=== PATIENT | male | born 1995 | race Caucasian/White ===

== ENCOUNTER 2017-11-11 21:32 | Emergency (ER) | payer OTHER ==
[~2017-11-11] VITALS: Ht 170.2 cm; Wt 57.6 kg
[2017-11-11] MEDS ORDERED: ACTICIN 5% CREA60 G1 TOP (22:11)
[2017-11-11 22:25] VITALS: BP 117/81
== END 2017-11-11 22:27 | disposition home or self-care (01) ==
LOC: ER 21:32
DX: B86 Scabies (principal); F17.210 Nicotine dependence, cigarettes, uncomplicated